=== PATIENT | male | born 1995 | race Caucasian/White ===

== ENCOUNTER 2023-10-22 09:24 | Outpatient (REF) | payer MEDICARE, MEDICAID, SELFPAY ==
[2023-10-22 09:52] LABS: MANUAL DIFF FLAG NO
[2023-10-22 10:15] LABS: Basophils Percent Auto 0.5 % (0-2); Eosinophils Absolute Auto 0.1 X10*3/uL (0.0-0.4); Eosinophils Percent Auto 1.2 % (0-4); Hematocrit 44.4 % (42.0-52.0); Hemoglobin 15.5 g/dl (14.0-18.0); Imm Gran Abs Auto 0.02 X10*3/uL (0.00-0.03); Imm Gran Pct Auto 0.3 % (0.0-0.4); Lymphocytes Absolute Auto 1.5 X10*3/uL (1.2-4.9); Lymphocytes Percent Auto 23.3 % (20-40); Mean Corpuscular HGB Conc 34.9 g/dl (31.0-36.0); Mean Corpuscular Hemoglobin 29.6 pg (27.0-33.0); Mean Corpuscular Volume 84.7 fL (80.0-98.0); Monocytes Absolute Auto 0.4 X10*3/uL (0.1-1.2); Monocytes Percent Auto 6.8 % (2-11); Neutrophils Absolute Auto 4.4 x10*3/uL (2.0-8.3); Neutrophils Percent Auto 67.9 % (45-73); Platelet Count 188 X10*3/uL (160-400); Red Blood Count 5.24 X10*6/uL (4.60-5.80); Red Cell Distribution Width 13.9 % (11.0-16.0); White Blood Count 6.5 X10*3/uL (4.8-10.8)
[2023-10-22 10:21] LABS: Estimated Average Glucose 108 mg/dL; Hemoglobin A1c % 5.4 % (<6.0)
[2023-10-22 11:47] LABS: Alanine Aminotransferase 26 U/L (0-40); Albumin Level 4.5 g/dL (3.5-5.0); Alkaline Phosphatase 52 U/L (39-117); Anion Gap 14 (12-20); Aspartate Amino Transferase 17 U/L (5-37); Bilirubin Total 1.1 mg/dL (0.0-1.0); Blood Urea Nitrogen 11 mg/dL (9-16); Calcium 9.7 mg/dL (8.4-10.2); Carbon Dioxide 25 mmol/L (22-29); Chloride 105 mmol/L (96-108); Cholesterol 159 mg/dL (<200); Estimated Glomerular Filt Rate > 60; Free T4 (Free Thyroxine) 1.07 ng/dL (0.71-1.85); Glucose Random 113 mg/dL (60-115); HDL Cholesterol 36 mg/dL (>40); LDL Cholesterol Calculated 103 mg/dL (<100); Magnesium 2.2 mg/dL (1.6-2.6); Potassium 4.2 mmol/L (3.3-5.1); Sodium 140 mmol/L (135-145); Thyroid Stimulating Hormone 1.05 uIU/mL (0.32-4.0); Total Protein 7.6 g/dL (6.5-8.0); Triglycerides 103 mg/dL (<150); Vitamin D 25-OH Total 28.2 ng/mL (>30)
[2023-10-22 11:48] LABS: Vitamin B12 650 pg/mL (200-900)
[2023-10-22 12:21] LABS: CT PCR NOT DETECTED (Not Detect.); NG PCR NOT DETECTED (Not Detect.)
[2023-10-23 08:06] LABS: Syphilis Screen Nonreactive (Nonreactive)
[2023-10-23 08:22] LABS: Hepatitis A Antibody IgG Nonreactive (Nonreactive); ~Hepatitis A Antibody IgG 0.55 S/CO (0.00-0.99)
[2023-10-23 08:30] LABS: HBS Num1 0.91 mIU/mL (0-7.99); HBc Num1 0.06 S/CO (0.00-0.79); HBsAGNum1 0.29 S/CO (0.00-0.99); HIV AB/AG Nonreactive (Nonreactive); HIV Num 1 0.05 S/CO (0.00-0.99); Hepatitis B Core Antibody Nonreactive (Nonreactive); Hepatitis B Surface Antigen Negative (Negative); ~Hepatitis B Surface Antibody NONREACTIVE (Nonreactive)
[2023-10-25 01:38] LABS: Zinc 75 mcg/dL (60-130)
== END 2023-10-22 09:25 | disposition home or self-care (01) ==
LOC: HO.LAB 09:24
PROVIDERS: Visit Provider Psychiatry & Neurology Psychiatry
DX: F43.10 Post-traumatic stress disorder, unspecified (principal); F63.89 Other impulse disorders; F32.A Depression, unspecified
CPT/HCPCS: 0353U; 80053; 80061; 82306; 82607; 83036; 83735; 84439; 84443; 84630; 85025; 86704; 86706; 86708; 86780; 87340; 87389

== ENCOUNTER 2023-10-30 11:00 | Outpatient (RCR) | payer MEDICARE, MEDICAID, SELFPAY ==
[2023-10-16 10:39] VITALS: BMI 34.0
[2023-10-16 10:41] VITALS: BP 124/80; PULSE 68; TEMP 37.2
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
--- NOTE | 2023-10-17 14:22 | HO.PHP ---
Client's case has been opened and reviewed in treatment team.
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
--- NOTE | 2023-10-21 14:43 | HO.PHP ---
Tyshawn was not scheduled today due to having a job interview that he was attending to.
--- NOTE | 2023-10-22 13:01 | PC.NURSE ---
Tyshawn stated he needs to leave early as his mother is not feeling well. He plans on attending the program tomorrow. [facility] staff is aware.
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
--- NOTE | 2023-10-23 15:03 | HO.PHP ---
[facility] staff member met with Tyshawn to follow up with him to further assess safety. Tyshawn disclosed that yesterday he was triggered due to having to go into [employer] to get cat liter, which triggered him because he saw the individual that accused him of stocking there. Tyshawn mentioned that it continued to go into this morning, which led to him having thoughts of just wanting to keep driving and go to [place]. Tyshawn mentioned that he chose not to act on those thoughts and to instead attend program. [facility] staff member praised Tyshawn for attending program. [facility] staff member explored with Tyshawn if he is struggling with any current SI, plan or intent. Tyshawn reported no concerns and stated that he would not act on those thoughts because he does not want to worry others. Tyshawn shared that he spoke with his mother already about making dinner with her. Tyshawn stated he is safe and will be in attendance to program. Tyshawn also shared that he is looking forward to starting his new position and going to [facility].
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
--- NOTE | 2023-10-25 14:10 | HO.PHP ---
PHP staff member faxed over the referral to [facility] for OP therapy and Med Management for Tyshawn at the [place] Location. PHP staff member is awaiting a phone call with scheduled appointment dates and times.
--- NOTE | 2023-10-25 23:05 | PM.EVENT ---
Event Note Date of Service: 10/29/23 Event Note: Reached out to speak with Tyshawn. Per staff, patient stated earlier today that he was interested in taking medication. He says he decided he would not inform his mother, and would make the decision on his own. When I reached him, he states he is doing well, he says he is open to talking but was not currently in a place he could talk and we agreed to follow up on this matter next week. Time Spent With Patient Time: Total time managing care of this patient today _10___ minutes.
--- NOTE | 2023-10-30 13:07 | PC.NURSE ---
Met with Tyshawn and reviewed his discharge medication paperwork. reports taking Vitaminn D as prescribed. He is alert and oriented. Mood appears bright and stable. Denied SI. Feels ready for discharge and looking forward to starting his new job.
--- NOTE | 2023-11-08 10:15 | HO.PHP ---
[facility] staff member followed up with Tyshawn to see if he was able to obtain his intake appointment through [facility]. Tyshawn disclosed that he has, in which his next appointment is scheduled November 18, 2023 at 9:30 AM with Brad via telehealth. [facility] staff member explored if Tyshawn was okay with me faxing over his discharge summary. Tyshawn agreed. [facility] staff member was receptive. [facility] staff member faxed over Tyshawn's discharge summary to [facility].
== END 2023-10-30 23:59 | disposition home or self-care (01) ==
LOC: HO.PHPA 11:00
PROVIDERS: Visit Provider Psychiatry & Neurology Psychiatry
DX: F43.12 Post-traumatic stress disorder, chronic (principal); F43.25 Adjustment disorder with mixed disturbance of emotions and conduct; F63.89 Other impulse disorders; F34.1 Dysthymic disorder; F84.9 Pervasive developmental disorder, unspecified
CPT/HCPCS: 90791; 90853